=== PATIENT | male | born 1990 | race Caucasian/White ===

== ENCOUNTER 2017-02-10 15:42 | Emergency (ER) | payer OTHER | END 2017-02-10 16:53 | disposition home or self-care (01) | LOC: ER1 15:42 | DX: T65.891A Toxic effect of other specified substances, accidental (unintentional), initial encounter (principal); T22.411A Corrosion of unspecified degree of right forearm, initial encounter; F17.210 Nicotine dependence, cigarettes, uncomplicated; Z23 Encounter for immunization | CPT/HCPCS: 90471; 90714; 99283 ==